=== PATIENT | male | born 1970 | race Caucasian/White ===

== ENCOUNTER 2019-04-02 21:14 | Emergency (ER) | payer SELFPAY ==
--- NOTE | 2019-04-03 00:33 | XRay Report ---
CHEST PA AND LATERAL VIEWS INDICATION: cough and chestpain. COMPARISON: None FINDINGS: Support devices: None Heart: Normal Lungs/Pleura: No acute pulmonary or pleural findings. IMPRESSION: 1. No significant abnormality. Signer Name: Morgan Roca MD Signed: 04/03/2019 12:29 AM Workstation Name: [id number]
--- NOTE | 2019-04-03 01:54 | Emergency Department Report ---
HPI - General Chief Complaint: Chest Pain Time Seen by Provider: 04/03/19 01:45 - HPI HPI: Room 42 The patient is a 48-year-old male presenting with a chief complaint of "I think I have the flu." He's had a cough productive of green sputum for 3 days. Patient complains of chest pain when he coughs. Patient states she has pain in his teeth and also has experience rhinorrhea. The patient states there are other sick contacts at home with similar symptoms. The patient states he's been taking Advil but has not helped his symptoms Location: [See above] Duration: [See above] Quality: [See above] Severity: [See above] Timing: [See above] Context: [See above] Modifying factors: [See above] Associated signs and symptoms: [see above] ED Past Medical Hx - Past Medical History Previous Medical History?: Yes Additional medical history: chronic back pain, (3) herniated discs lower back - Surgical History Past Surgical History?: Yes Additional Surgical History: back surgery x 2 - Family History Family history: no significant - Social History Smoking Status: Never Smoker Substance Use Type: None - Medications Home Medications: Home Medications Medication Instructions Recorded Confirmed Last Taken Type Ibuprofen [Motrin] 600 mg PO Q8H PRN #40 tablet 04/24/14 Unknown Rx Sulfamethoxazole/Trimethoprim 1 each PO BID #20 tablet 04/24/14 Unknown Rx [Bactrim Ds] cephALEXin [Keflex] 500 mg PO Q6H #40 capsule 04/24/14 Unknown Rx Azithromycin [Zithromax Z-DESMOND] 0 mg PO DAILY #6 tab 04/03/19 Unknown Rx Benzonatate [Tessalon Perles] 100 mg PO Q8HR #30 capsule 04/03/19 Unknown Rx HYDROcodone/APAP 5-325 [[place] 1 - 2 each PO Q6HR PRN #10 tablet 04/03/19 Unknown Rx 5/325] Ibuprofen [Motrin 800 MG tab] 800 mg PO Q8HR PRN #20 tablet 04/03/19 Unknown Rx ED Review of Systems ROS: Stated complaint: CHEST PAIN Other details as noted in HPI Constitutional: no symptoms reported Eyes: denies: eye pain ENT: throat pain Respiratory: cough Cardiovascular: denies: chest pain Endocrine: no symptoms reported Gastrointestinal: denies: abdominal pain Genitourinary: denies: dysuria Musculoskeletal: myalgia Neurological: headache Physical Exam - Physical Exam Vital Signs: Vital Signs 04/02/19 21:20 Temperature 98.6 F Pulse Rate 110 H Respiratory 20 Rate Blood Pressure 178/117 O2 Sat by Pulse 96 Oximetry Physical Exam: GENERAL: The patient is well-developed well-nourished male sitting in chair not appearing to be in acute distress HEENT: Normocephalic. Atraumatic. Extraocular motions are intact. Patient has moist mucous membranes. NECK: Supple. No meningitic signs are noted. No nuchal rigidity CHEST/LUNGS: Clear to auscultation. There is no respiratory distress noted. HEART/CARDIOVASCULAR: Regular. There is no tachycardia. There is no gallop rub or murmur. ABDOMEN: Abdomen is soft, nontender. Patient has normal bowel sounds. There is no abdominal distention. SKIN: There is no rash. There is no edema. There is no diaphoresis. NEURO: The patient is awake, alert, and oriented. The patient is cooperative. The patient has normal speech MUSCULOSKELETAL: There is no evidence of acute injury. ED Course Vital Signs 04/02/19 21:20 Temperature 98.6 F Pulse Rate 110 H Respiratory 20 Rate Blood Pressure 178/117 O2 Sat by Pulse 96 Oximetry ED Medical Decision Making - Lab Data Laboratory Tests 04/03/19 Unknown Influenza A (Rapid) Negative Influenza B (Rapid) Negative - Radiology Data Radiology results: report reviewed (chest x-ray), image reviewed (chest x-ray) interpreted by me: Chest x-ray-no focal infiltrates, no pneumothorax [facility] [address] [place] [address] XRay Report Signed Patient: ESTEPHANIE PATEL MR#: [id number] : 1970 Acct:[id number] Age/Sex: 48 / M ADM Date: 04/02/19 Loc: ED Attending Dr: Ordering Physician: ANSHU LANGLEY Date of Service: 04/02/19 Procedure(s): XR chest routine 2V Accession Number(s): [id number] cc: ANSHU LANGLEY Fluoro Time In Minutes: CHEST PA AND LATERAL VIEWS INDICATION: cough and chestpain. COMPARISON: None FINDINGS: Support devices: None Heart: Normal Lungs/Pleura: No acute pulmonary or pleural findings. IMPRESSION: 1. No significant abnormality. Signer Name: Morgan Roca MD Signed: 04/03/2019 12:29 AM Workstation Name: [id number] Transcribed By: TM Dictated By: Morgan Roca MD Electronically Authenticated By: Morgan Roca MD Signed Date/Time: 04/03/1928 DD/ TD/TT: - Differential Diagnosis influenza, bronchitis, pneumonia Critical care attestation.: If time is entered above; I have spent that time in minutes in the direct care of this critically ill patient, excluding procedure time. ED Disposition Clinical Impression: Acute bronchitis, Costochondritis Disposition: - TO HOME OR SELFCARE Is pt being admited?: No Does the pt Need Aspirin: No Condition: Stable Instructions: Acute Bronchitis (ED) Additional Instructions: Return to the emergency department should you develop worsening symptoms, inability to tolerate food or liquids, high fever or any other concerns Prescriptions: Ibuprofen [Motrin 800 MG tab] 800 mg PO Q8HR PRN #20 tablet PRN Reason: Pain, Moderate (4-6) HYDROcodone/APAP 5-325 [[place] 5/325] 1 - 2 each PO Q6HR PRN #10 tablet PRN Reason: Pain Benzonatate [Tessalon Perles] 100 mg PO Q8HR #30 capsule Azithromycin [Zithromax Z-DESMOND] 0 mg PO DAILY #6 tab Referrals: KIANA RICHARDSON MD [Primary Care Provider] - 3-5 Days Time of Disposition: 02:32
[2019-04-03] MEDS ORDERED: HYDROcodone/ACETAMINOPHEN 5-325 MG TAB PO ONE (02:32)
[2019-04-03] MEDS ORDERED: IBUPROFEN 800 MG TAB PO ONE (02:32)
[2019-04-03 04:44] VITALS: BP 150/90
== END 2019-04-03 02:55 | disposition home or self-care (01) ==
LOC: ED 21:14
DX: M94.0 Chondrocostal junction syndrome [Tietze] (principal); J20.9 Acute bronchitis, unspecified; Z98.890 Other specified postprocedural states; Z79.899 Other long term (current) drug therapy
CPT/HCPCS: 71046; 87400